=== PATIENT | female | born 1995 | race Caucasian/White ===

== ENCOUNTER 2019-09-26 20:32 | Emergency (ER) | payer OTHER ==
[~2019-09-26] VITALS: Ht 157.5 cm; Wt 72.6 kg
[2019-09-26 20:47] VITALS: BP 139/64
== END 2019-09-26 20:58 | disposition home or self-care (01) ==
LOC: M.ERS 20:32
DX: T76.21XA Adult sexual abuse, suspected, initial encounter (principal)